=== PATIENT | male | born 1985 | race Caucasian/White ===

== ENCOUNTER 2019-06-05 12:32 | Day surgery (SDC) | payer SELFPAY, OTHER ==
[~2019-06-05 12:32] MED LIST: Lactated Ringers 1,000 ML IV SCH; Sodium Chloride 0.9% 10 ML SDV IV PRN; Sodium Chloride 0.9% 10 ML Syringe FLUSH PRN; Sodium Chloride 0.9% 2.5 ML Syringe FLUSH PRN; ceFAZolin 1 GM in Premix Bag 1 BAG IV ONE
--- NOTE | 2019-06-05 13:34 | PCM.PREANE ---
Preanesthetic Assessment - Anesthesia/Transfusion/Family Hx Anesthesia History: No Prior Anesthesia Family History of Anesthesia Reaction: No Transfusion History: No Prior Transfusion(s) Intubation History: Unknown - Review of Systems General: No Symptoms Pulmonary: No Symptoms Cardiovascular: No Symptoms Gastrointestinal: No Symptoms Neurological: No Symptoms Other: Reports: None - Physical Assessment Height: 6 ft 2 in Weight: 100.698 kg ASA Class: 2 Mental Status: Alert & Oriented x3 Airway Class: Mallampati = 1 Dentition: Reports: Normal Dentition Thyro-Mental Finger Breadths: 3 Mouth Opening Finger Breadths: 3 ROM/Head Extension: Full Lungs: Clear to Auscultation, Normal Respiratory Effort Cardiovascular: Regular Rate, Regular Rhythm - Allergies Allergies/Adverse Reactions: Allergies Allergy/AdvReac Type Severity Reaction Status Date / Time No Known Allergies Allergy Verified 05/29/19 11:50 - Blood Blood Available: No - Anesthesia Plan Pre-Op Medication Ordered: None - Acknowledgements Anesthesia Type Planned: General Anesthesia Pt an Appropriate Candidate for the Planned Anesthesia: Yes Alternatives and Risks of Anesthesia Discussed w Pt/Guardian: Yes Pt/Guardian Understands and Agrees with Anesthesia Plan: Yes PreAnesthesia Questionnaire HEENT History: Reports: Other (See Below) Other HEENT History: wears glasses Gastrointestinal History: Reports: Hepatitis Other Gastrointestinal History: hx of Hepatitis B - SUBSTANCE USE Smoking Status *Q: Current Every Day Smoker (in process of quit smoking) Tobacco Use Within Last Twelve Months: Cigarettes Recreational Drug Use History: No - HOME MEDS Home Medications: Home Meds . [No Known Home Meds] 05/29/19 [History] - CURRENT (IN HOUSE) MEDS Current Meds: Current Medications Lactated Ringer's (Ringers, Lactated) 1,000 mls @ 100 mls/hr IV ASDIRECTED ANTONY Sodium Chloride (Saline Flush) 10 ml FLUSH ASDIRECTED PRN PRN Reason: Keep Vein Open Sodium Chloride (Saline Flush) 2.5 ml FLUSH ASDIRECTED PRN PRN Reason: Keep Vein Open Sodium Chloride (Normal Saline) 10 ml IV ASDIRECTED PRN PRN Reason: IV Use Discontinued Medications Cefazolin Sodium/Dextrose 1 gm (/ Premix) 50 mls @ 100 mls/hr IV ONCALL ONE Stop: 06/05/19 00:30
[2019-06-05] MEDS ORDERED: Bupivacaine 0.5% 10 ML SDV ONE (13:40)
[2019-06-05] MEDS ORDERED: Ketorolac 30 MG/ML SDV ONE (13:55)
[2019-06-05] MEDS ORDERED: Lidocaine 2% 5 ML SDV ONE (13:55)
[2019-06-05] MEDS ORDERED: Ondansetron 4 MG/2 ML SDV ONE (13:55)
[2019-06-05] MEDS ORDERED: Glycopyrrolate 0.2 MG/ML SDV ONE (13:55)
[2019-06-05] MEDS ORDERED: Propofol 200 MG/20 ML SDV ONE (13:57)
[2019-06-05] MEDS ORDERED: fentaNYL 100 MCG/2 ML SDV ONE (13:57)
[2019-06-05] MEDS ORDERED: Sodium Chloride 0.9% 20 ML ONE (14:10)
[2019-06-05] MEDS ORDERED: ceFAZolin 1 GM Vial ONE (14:10)
--- NOTE | 2019-06-05 17:19 | OR ---
SURGEON: Marilin Little M.D. DATE OF PROCEDURE: 06/05/2019 PREOPERATIVE DIAGNOSES: Infertility and left varicocele. POSTOPERATIVE DIAGNOSES: Infertility and left varicocele. OPERATION: Left spermatic vein ligation. DESCRIPTION OF PROCEDURE: The patient was given general anesthesia. He was in the supine position. Lower abdomen and external genitalia were prepped and draped in sterile drapes. A left groin incision was made, carried through Alfie's fascia and the external oblique aponeurosis. The cord structures were identified and then isolated from surrounding structures. The largest vein, which was not very large, was identified and a segment of it was removed and the rest was tied off on both sides with 2-0 silk. No other significant veins were identified. With that done, the external oblique aponeurosis was closed. The subcutaneous tissues were reapproximated with 3-0 chromic. Skin was closed with stewart. The patient tolerated the procedure well. Estimated blood loss under 5 mL. MANISH / YODIT /[id number]
== END 2019-06-05 17:00 | disposition home or self-care (01) ==
LOC: MW.SDS 12:32
PROVIDERS: ATTEND Urology
DX: I86.1 Scrotal varices (principal); N46.9 Male infertility, unspecified; F17.210 Nicotine dependence, cigarettes, uncomplicated
CPT/HCPCS: 55530; J0690; J1885; J2001; J2405; J2704; J3010; J3490; J7120; 88304

== ENCOUNTER 2022-05-26 08:26 | Day surgery (SDC) | payer OTHER ==
[~2022-05-26 08:26] MED LIST changes: +Acetaminophen 1,000 MG in Premix Bag 1 BAG IV SCH; +Albuterol 0.083% 2.5 MG/3 ML Neb Soln NEB PRN; +Bupivacaine 0.25%/EPINEPHrine 1:200,000 10 ML SDV ONE; +Bupivacaine 0.5% 30 ML SDV ONE; +Dexmedetomidine 200 MCG/2 ML SDV ONE; +HYDROmorphone 1 MG/ML Syringe IVPUSH PRN; +Lidocaine 1% 20 ML MDV ONE; +Lidocaine 2% 5 ML SDV ONE; +Metoclopramide 10 MG/2 ML SDV IVPUSH PRN; +Midazolam 1 MG/ML 2 ML SDV ONE; +Morphine 4 MG/ML VIAL IVPUSH PRN; +Naloxone 0.4 MG/ML SDV IVPUSH PRN; +Octyl 2-Cyanoacrylate 1 Tube ONE; +Ondansetron 4 MG/2 ML SDV IVPUSH PRN; +Pregabalin 75 MG Cap PO SCH; +Propofol 200 MG/20 ML SDV ONE; -Sodium Chloride 0.9% 10 ML SDV IV PRN; -Sodium Chloride 0.9% 10 ML Syringe FLUSH PRN; -Sodium Chloride 0.9% 2.5 ML Syringe FLUSH PRN; +Water For Injection, Sterile 20 ML ONE; -ceFAZolin 1 GM in Premix Bag 1 BAG IV ONE; +ceFAZolin 2 GM in Premix Bag 1 BAG IV SCH; +fentaNYL 100 MCG/2 ML SDV ONE; +fentaNYL 50 MCG/ML SDV IVPUSH PRN
[2022-05-26] MEDS ORDERED: Ketamine 500 mg/10 ML MDV ONE (10:19)
[2022-05-26] MEDS ORDERED: Ondansetron 4 MG/2 ML SDV ONE (10:33)
[2022-05-26] MEDS ORDERED: Dexamethasone 4 MG/ML 5 ML MDV ONE (10:33)
[2022-05-26] MEDS ORDERED: Ketorolac 30 MG/ML SDV ONE (10:41)
== END 2022-05-26 12:30 | disposition home or self-care (01) ==
LOC: MW.SDS 08:26
PROVIDERS: ATTEND Surgery
DX: D17.1 Benign lipomatous neoplasm of skin and subcutaneous tissue of trunk (principal); Z87.891 Personal history of nicotine dependence; Z79.899 Other long term (current) drug therapy
CPT/HCPCS: 21552; 22900; A9270; J0690; J1100; J1885; J2250; J2405; J2704; J3010; J3490; J7120; 00400